=== PATIENT | male | born 1980 | race Caucasian/White ===

== ENCOUNTER 2017-03-24 20:48 | Emergency (ER) | payer OTHER ==
[~2017-03-24] VITALS: Ht 185.4 cm; Wt 129.5 kg
[2017-03-24 21:03] VITALS: BP 147/73
[2017-03-24] MEDS ORDERED: FLUORESCEIN OPHTH 1 MG STRIP OS ONE (21:30)
[2017-03-24] MEDS ORDERED: TETRACAINE 0.5% OPHTH SOLN 4ML OS ONE (21:30)
[2017-03-24] MEDS ORDERED: GENTAMICIN 0.3% OPHTH SOL 5 ML BTL OS ONE (21:45)
[2017-03-24] MEDS ORDERED: KETOROLAC 0.5% OPHTH SOLN OS ONE (21:45)
[2017-03-24] MEDS ORDERED: GENT3OPD OS (21:53)
== END 2017-03-24 22:33 | disposition home or self-care (01) ==
LOC: M ED 20:48
DX: S05.02XA Injury of conjunctiva and corneal abrasion without foreign body, left eye, initial encounter (principal); W26.8XXA Contact with other sharp object(s), not elsewhere classified, initial encounter; Y92.89 Other specified places as the place of occurrence of the external cause; Y93.89 Activity, other specified; Y99.0 Civilian activity done for income or pay

== ENCOUNTER → 2017-10-15 | Outpatient (CLI) | payer OTHER ==
[~2017-10-15] MED LIST: METHACHOLINE KIT (J7674) INH
== END ==
LOC: M CARPUL 13:27
DX: R06.00 Dyspnea, unspecified (principal)
CPT/HCPCS: J7674

== ENCOUNTER 2018-10-05 13:36 | Emergency (ER) | payer OTHER ==
[~2018-10-05] VITALS: Ht 188 cm; Wt 159.1 kg
[~2018-10-05 13:36] MED LIST changes: +GENT3OPD OS; -METHACHOLINE KIT (J7674) INH
[2018-10-05] MEDS ORDERED: ASPIRIN 81 MG CHEW TABLET PO ONE (14:15)
[2018-10-05] MEDS ORDERED: METOCLOPRAMIDE INJ 10MG/2ML VIAL (J2765) IV ONE (14:30)
[2018-10-05 14:32] LABS: BASO % 0.4 % (0.0-1.0); EOS # 0.2 10^3/uL (0.0-0.50); EOS % 2.5 % (0.0-3.0); HEMOGLOBIN 15.4 g/dl (13.5-17.5); LYMPH # 1.5 10^3/uL (1.5-4.5); LYMPH % 21.8 % (24.0-44.0); MEAN CORPUSCULAR HEMOGLOBIN 28.6 pg (27.0-33.0); MEAN CORPUSCULAR HGB CONC 33.5 g/dl (32.0-36.5); MEAN CORPUSCULAR VOLUME 85.3 fl (80.0-96.0); MONO # 0.5 10^3/uL (0.0-0.8); NEUTROPHILS # 4.6 10^3/uL (1.8-7.7); NEUTROPHILS % 68.2 % (36.0-66.0); PLATELET COUNT, AUTOMATED 264 10^3/uL (150-450); RED BLOOD COUNT 5.39 10^6/uL (4.30-6.10); WHITE BLOOD COUNT 6.7 10^3/uL (4.0-10.0)
[2018-10-05] MEDS: NS 1,000 ML IV SCH ×3 (14:38→21:13)
[2018-10-05 14:43] LABS: INR 0.93; PROTHROMBIN TIME 12.6 SECONDS (12.1-14.4)
[2018-10-05 14:44] LABS: PARTIAL THROMBOPLASTIN TIME 28.8 SECONDS (25.4-37.6)
[2018-10-05 14:46] LABS: D-DIMER QUANT 317.63 ng/ml (<500)
[2018-10-05 14:58] LABS: ALT/SGPT 43 U/L (12-78); BILIRUBIN,DIRECT 0.1 MG/DL (0.0-0.2); BILIRUBIN,TOTAL 0.4 MG/DL (0.2-1.0); BLOOD UREA NITROGEN 14 MG/DL (7-18); CALCIUM LEVEL 9.1 MG/DL (8.5-10.1); CARBON DIOXIDE LEVEL 27 MEQ/L (21-32); CHLORIDE LEVEL 106 MEQ/L (98-107); CPK CREATINE PHOSPHOKINASE 200 U/L (39-308); CREATININE FOR GFR 1.11 MG/DL (0.70-1.30); FREE T4 1.01 NG/DL (0.76-1.46); GLOMERULAR FILTRATION RATE > 60.0 (>60); GLUCOSE, FASTING 98 MG/DL (70-100); LIPASE 181 U/L (73-393); MB/CK RELATIVE INDEX 0.95 (< OR =4); POTASSIUM SERUM 4.3 MEQ/L (3.5-5.1); SODIUM LEVEL 140 MEQ/L (136-145); TOTAL PROTEIN 7.6 GM/DL (6.4-8.2); TROPONIN I < 0.02 NG/ML (< 0.10)
[2018-10-05] MEDS ORDERED: ACETAMINOPHEN TAB 650MG DOSE (2X325MG) PO ONE (15:15)
--- NOTE | 2018-10-05 15:16 | REP ---
CHEST PA AND LATERAL: 10/05/2018. COMPARISON: 05/22/2017 CLINICAL HISTORY: Chest pain. FINDINGS: The two views show the lungs well inflated. CP angles are sharply defined. There is no lateral pleural thickening, apical scarring, or pneumothorax. I see no dense consolidation, atelectasis, or mass. Heart is not enlarged. There is no vascular redistribution or edema. The aorta and airway are intact. There is no pneumothorax or pneumomediastinum. Bony thorax shows no focal lesion or compression deformity. IMPRESSION: 1. No acute cardiopulmonary disease, stable chest. Electronically Signed by Shine Andrews MD 10/05/2018 07:20 P
--- NOTE | 2018-10-05 16:44 | ECGEPIP ---
Stationary ECG Study [facility] - ED Test Date: 2018-10-05 Pat Name: EFREM ROUSSEAU Department: Room: - Gender: M [employer] Manager: MUNIR : 1980 Requested By: BECKY Bailey Order Number: [id number] Reading MD: Sera Kilpatrick Measurements Intervals [place] Rate: 78 P: 28 MO: 177 QRS: -5 QRSD: 100 T: 10 QT: 355 QTc: 405 Interpretive Statements SINUS RHYTHM NO PRIOR FOR COMPARISON Electronically Signed On 10-05-2018 16:43:42 EST by Sera Kilpatrick
[2018-10-05 20:40] LABS: CPK CREATINE PHOSPHOKINASE 169 U/L (39-308); MB/CK RELATIVE INDEX 1.01 (< OR =4); TROPONIN I < 0.02 NG/ML (< 0.10)
[2018-10-05 20:51] VITALS: BP 116/66
--- NOTE | 2018-10-06 06:57 | REP ---
CT BRAIN WITHOUT CONTRAST: 10/05/2018. Clinical history: Sudden onset headache. Findings: Noncontrast images of the brain with soft tissue and bone window settings are reviewed. Lateral ventricles are midline, symmetric and without dilatation or displacement. Third and fourth ventricles unremarkable. Basal ganglia symmetric and normal. The tamez-white junction differentiation is well maintained. There is no cortical atrophy. I see no vascular territory infarct, intracranial hemorrhage, mass or mass effect. No extra-axial fluid collection. Brainstem was unremarkable. Cerebellum intact. Basal cisterns unremarkable. Visualized sinuses and mastoids are clear. The skull base and calvarium show no fracture or focal lesion. Impression: 1. Normal noncontrast CT brain. Electronically Signed by Shine Andrews MD 10/06/2018 09:20 A
--- NOTE | 2018-10-06 20:54 | ECGEPIP ---
Stationary ECG Study [facility] - ED Test Date: 2018-10-05 Pat Name: EFREM ROUSSEAU Department: Room: - Gender: M Director Of Guidance: AF : 1980 Requested By: BECKY Bailey Order Number: [id number] Reading MD: Sera Kilpatrick Measurements Intervals [place] Rate: 52 P: 28 [place]: 192 QRS: 16 QRSD: 102 T: 26 QT: 405 QTc: 379 Interpretive Statements SINUS BRADYCARDIA WITH SINUS ARRHYTHMIA DECREASED RATE 10/05/18 Electronically Signed On 10-06-2018 20:54:26 EST by Sera Kilpatrick
== END 2018-10-05 21:16 | disposition home or self-care (01) ==
LOC: M ED 13:36
DX: R55 Syncope and collapse (principal); R00.1 Bradycardia, unspecified; I10 Essential (primary) hypertension; F32.9 Major depressive disorder, single episode, unspecified; F17.220 Nicotine dependence, chewing tobacco, uncomplicated; Z82.49 Family history of ischemic heart disease and other diseases of the circulatory system
CPT/HCPCS: 36415; 70450; 71046; 80048; 80076; 82550; 82553; 83690; 84439; 84443; 84484; 85025; 85379; 85610; 85730; 93005; 93041; 94760; 96374; 99285; J2765

== ENCOUNTER → 2019-11-01 | Outpatient (CLI) | payer OTHER ==
[~2019-11-01] MED LIST changes: +GENT0.3S36 OS; -GENT3OPD OS
--- NOTE | 2019-11-03 12:33 | SLEEPCENT ---
DATE OF PROCEDURE: 11/01/2019 ORDERED BY: Melissa Ledesma Nocturnal polysomnography was performed for evaluation of sleep physiology. 6 hours and 42 minutes of data were reviewed. There were 358 minutes of sleep identified. Sleep latency was mildly prolonged at 15 minutes. REM latency was normal at 80 minutes. Sleep architecture was well preserved. There were 3 REM cycles noted. Overall sleep efficiency was 90.1%. The patient's electrocardiogram showed a sinus rhythm with an average heart rate of 62 beats per minute. Electroencephalogram (EEG) showed normal waveforms for awake and sleep. There were 147 respiratory events identified of 10 seconds in duration or greater for an apnea-hypopnea index of 24.6. The events were primarily obstructive, not exclusive to sleep stage nor body posture. Arousals from respiratory events occurred 5.5 times per hour and oxygen desaturations were seen into the low 80s. There was snoring noted and other measures of sleep physiology were normal. IMPRESSION: Obstructive sleep apnea syndrome (G47.33). Apnea-hypopnea index 24.6. RECOMMENDATION: The patient should be encouraged to return to the sleep disorder center for pressure therapy. In the interim, alcohol and sedative avoidance should be practiced and caution exercised during the operation of motor vehicles.
== END ==
LOC: M SLEEP 20:00
PROVIDERS: ATTEND Physician Assistant Medical
DX: G47.33 Obstructive sleep apnea (adult) (pediatric) (principal)

== ENCOUNTER 2020-06-06 17:59 | Emergency (ER) | payer OTHER ==
[~2020-06-06] VITALS: Ht 188 cm; Wt 161.7 kg
--- NOTE | 2020-06-06 19:09 | REPVR ---
PROCEDURE INFORMATION: Exam: CT Maxillofacial Without Contrast Exam date and time: 06/06/2020 6:28 PM Age: 40 years old Clinical indication: Jaw pain; Additional info: Left jaw/mandibular joint pain; ? Injury TECHNIQUE: Imaging protocol: Computed tomography images of the face without contrast. Radiation optimization: All CT scans at this facility use at least one of these dose optimization techniques: automated exposure control; mA and/or kV adjustment per patient size (includes targeted exams where dose is matched to clinical indication); or iterative reconstruction. COMPARISON: No relevant prior studies available. FINDINGS: Orbital cavity: Orbits are normal. Globes are unremarkable. Bones/joints: There is no fracture or dislocation of the facial bones. The temporomandibular joints are unremarkable. There are no bony destructive changes. Paranasal sinuses: Normal. No air-fluid levels. The ostiomeatal units are patent. The infundibuli are bordered laterally by Mary[place]uy air cells on both sides. Mastoid air cells: Normal. No mastoid effusion. Auditory system: The middle ear spaces are clear. Soft tissues: Unremarkable. No significant facial soft tissue swelling. No soft tissue fluid collection. Nasal cavity: Unremarkable. Dental: There is a residual or recurrent periapical abscess involving the right upper 2nd premolar where a root canal has been performed (image 30 of the sagittal series 204). All of the wisdom teeth have been removed. Nasopharynx: Unremarkable. Oral Cavity: Unremarkable. Oropharynx: Unremarkable. No significant tonsillar hypertrophy. No tonsillar or peritonsillar abscess. Parotid glands: Unremarkable. IMPRESSION: 1. No fracture or dislocation of the facial bones. Unremarkable temporomandibular joints and mandible. 2. Residual or recurrent periapical abscess involving the right upper 2nd premolar where a root canal has been performed. Electronically signed by: Jhonathan Torres On 06/06/2020 19:09:34 PM
[2020-06-06 19:44] VITALS: BP 141/69
--- NOTE | 2020-06-07 19:48 | ED PDOC ---
Post-Departure Follow-Up dr serenity maxwell faxed formal report of ct max fac for fu Mary Jo Beltre MD Jun 07, 2020 19:48
== END 2020-06-06 19:46 | disposition home or self-care (01) ==
LOC: M ED 17:59
DX: M26.602 Left temporomandibular joint disorder, unspecified (principal)